=== PATIENT | male | born 1965 | race Caucasian/White ===

== ENCOUNTER 2025-03-14 16:27 | Outpatient (CLI) | payer OTHER ==
--- NOTE | 2025-03-14 17:27 | RADIOLOGY REPORT ---
EXAM: MR MRI LOWER EXTREMITY LEFT INDICATION: PAIN IN L KNEE TECHNIQUE:: Multiplanar and multisequence MR imaging of the left knee was performed in the absence of gadolinium contrast. COMPARISON: None FINDINGS: There is a tear in the anterior half of the lateral meniscus abutting the free edge of the meniscus. This extends into the anterior root of the meniscus The medial meniscus is intact There is a osteochondral defect along the medial aspect of the lateral tibial plateau The cruciate ligaments are intact The collateral ligaments are intact The quadriceps and patellar tendons are intact. There is a small joint effusion present. There is thinning of the hyaline cartilage surfaces along the patellofemoral joint with subchondral signal intensity change in the medial facet. IMPRESSION: 1. Degenerative tear involving the anterior half of the lateral meniscus. There is grade 4 chondromalacia in the underlying lateral tibial plateau 2. 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
== END 2025-03-14 23:59 | disposition home or self-care (01) ==
LOC: MRI02 16:27
PROVIDERS: ATTEND Family Medicine
DX: S83.282A Other tear of lateral meniscus, current injury, left knee, initial encounter (principal); M25.562 Pain in left knee; M25.462 Effusion, left knee; X58.XXXA Exposure to other specified factors, initial encounter; Y93.89 Activity, other specified; Y92.89 Other specified places as the place of occurrence of the external cause; Y99.8 Other external cause status; M22.42 Chondromalacia patellae, left knee
CPT/HCPCS: 73721